=== PATIENT | male | born 1995 | race African-American/Black ===

== ENCOUNTER 2018-04-09 17:42 | Emergency (ER) | payer OTHER ==
--- NOTE | 2018-04-09 19:33 | ER ---
Nurse's Notes [facility] Name: Shae Thornton Age: 22 yrs Sex: Male : 1995 Arrival Date: 04/09/2018 Time: 17:48 Bed 12 Private MD: Diagnosis: Influenza due to other identified influenza virus-A Presentation: 04/09 18:19 Presenting complaint: Patient states: fever, cough, sore throat, body aches, and aa5 vomiting since last night. Pt also reports lower back pain. Transition of care: patient was not received from another setting of care. Onset of symptoms was April 2018. Risk Assessment: Do you want to hurt yourself or someone else? Patient reports no desire to harm self or others. Initial Sepsis Screen: Does the patient meet any 2 criteria? No. Patient's initial sepsis screen is negative. Does the patient have a suspected source of infection? No. Patient's initial sepsis screen is negative. Care prior to arrival: None. 18:19 Method Of Arrival: Ambulatory aa5 18:19 Acuity: BAL 4 aa5 Historical: - Allergies: 18:20 No Known Allergies; aa5 - PMHx: 18:20 None; aa5 - PSHx: 18:20 None; aa5 - Immunization history:: Adult Immunizations up to date. - Social history:: Smoking status: Patient/guardian denies using tobacco. - Ebola Screening: : No symptoms or risks identified at this time. Screenin:05 Abuse screen: Denies threats or abuse. Denies injuries from another. Nutritional lp1 screening: No deficits noted. Tuberculosis screening: No symptoms or risk factors identified. Fall Risk None identified. Assessment: 19:45 General: Appears in no apparent distress. Behavior is appropriate for age. Pain: lp1 Complains of pain in lumbar area Pain currently is 6 out of 10 on a pain scale. Quality of pain is described as aching. Neuro: No deficits noted. Cardiovascular: Patient's skin is warm and dry. Respiratory: Airway is patent Respiratory effort is even, unlabored. GI: No signs and/or symptoms were reported involving the gastrointestinal system. : No signs and/or symptoms were reported regarding the genitourinary system. EENT: Throat is clear. Derm: Skin is intact, Skin is dry, Skin is normal. Musculoskeletal: Circulation, motion, and sensation intact. Vital Signs: 18:20 BP 101 / 82; Pulse 94; Resp 18 S; Temp 100.0(TE); Pulse Ox 97% on R/A; Weight 68.04 kg aa5 (R); Height 5 ft. 10 in. (177.80 cm) (R); Pain 7/10; 19:45 BP 119 / 55; Pulse 85; Resp 16; Temp 97.9(O); Pulse Ox 99% on R/A; Pain 5/10; lp1 18:20 Body Mass Index 21.52 (68.04 kg, 177.80 cm) aa5 ED Course: 17:48 Patient arrived in ED. mr 18:20 Triage completed. aa5 18:20 Arm band placed on. aa5 18:40 Urine collected: clean catch specimen, clear, jesus colored, Amount Voided: 80mL. jp3 18:53 [facility]ara [facility]C [facility] snw 18:53 César Gudino MD is Attending Physician. snw 19:04 Urine Microscopic Only Sent. jp3 19:04 Throat Culture Sent. jp3 19:04 Urine Dipstick--Ancillary (enter results) Sent. jp3 19:31 Priscilla Sam, KARLENE is Primary Nurse. lp1 20:05 Patient has correct armband on for positive identification. lp1 20:05 No provider procedures requiring assistance completed. Patient did not have IV access lp1 during this emergency room visit. Administered Medications: 19:35 Drug: Tamiflu 75 mg Route: PO; lp1 20:10 Follow up: Response: No adverse reaction lp1 19:35 Drug: [place] (7.5 mg-325 mg) 1 tabs Route: PO; lp1 20:10 Follow up: Response: No adverse reaction; Pain is decreased lp1 Outcome: 19:33 Discharge ordered by . snw 20:05 Discharged to home ambulatory, with family. lp1 20:05 Condition: good 20:05 Discharge instructions given to patient, family, Instructed on discharge instructions, follow up and referral plans. medication usage, Demonstrated understanding of instructions, follow-up care, medications, Prescriptions given X 2. 20:10 Patient left the ED. lp1 Signatures: Tiara Taylor FNP-C FNP-Lidia Holt NolanSenait trejo RN RN aa5 Priscilla Sam, RN RN lp1 Antolin Trinh jp3
--- NOTE | 2018-04-09 19:34 | EDPHYS ---
Physician Documentation [facility] Name: Shae Thornton Age: 22 yrs Sex: Male : 1995 Arrival Date: 04/09/2018 Time: 17:48 Bed 12 Private MD: ED Physician César Gudino HPI: 04/09 20:46 This 22 yrs old Black Male presents to ER via Ambulatory with complaints of Fever, Body snw aches, Sore Throat, Vomiting. 20:46 The patient reports fever, not measured (subjective). Onset: The symptoms/episode snw began/occurred suddenly, yesterday. Modifying factors: there are no obvious modifying factors. Associated signs and symptoms: Pertinent positives: chills, cough, decreased appetite, myalgias, nausea, runny nose, sore throat. Severity of symptoms: At their worst the symptoms were moderate. The patient has not experienced similar symptoms in the past. It is unknown whether or not the patient has recently seen a physician. Historical: - Allergies: 18:20 No Known Allergies; aa5 - PMHx: 18:20 None; aa5 - PSHx: 18:20 None; aa5 - Immunization history:: Adult Immunizations up to date. - Social history:: Smoking status: Patient/guardian denies using tobacco. - Ebola Screening: : No symptoms or risks identified at this time. ROS: 20:44 Eyes: Negative for injury, pain, redness, and discharge, ENT: Negative for injury, snw pain, and discharge, Neck: Negative for injury, pain, and swelling, Cardiovascular: Negative for chest pain, palpitations, and edema. 20:44 Abdomen/GI: Negative for abdominal pain, nausea, vomiting, diarrhea, and constipation, Back: Negative for injury and pain, : Negative for injury, bleeding, discharge, and swelling, MS/Extremity: Negative for injury and deformity, Skin: Negative for injury, rash, and discoloration, Neuro: Negative for headache, weakness, numbness, tingling, and seizure. 20:44 Constitutional: Positive for body aches, chills, fatigue, fever, malaise, poor PO intake. 20:44 Respiratory: Positive for cough. Exam: 20:44 Head/Face: Normocephalic, atraumatic. Eyes: Pupils equal round and reactive to light, snw extra-ocular motions intact. Lids and lashes normal. Conjunctiva and sclera are non-icteric and not injected. Cornea within normal limits. Periorbital areas with no swelling, redness, or edema. ENT: Nares patent. No nasal discharge, no septal abnormalities noted. Tympanic membranes are normal and external auditory canals are clear. Oropharynx with no redness, swelling, or masses, exudates, or evidence of obstruction, uvula midline. Mucous membranes moist. Neck: Trachea midline, no thyromegaly or masses palpated, and no cervical lymphadenopathy. Supple, full range of motion without nuchal rigidity, or vertebral point tenderness. No Meningismus. Chest/axilla: Normal chest wall appearance and motion. Nontender with no deformity. No lesions are appreciated. 20:44 Respiratory: Lungs have equal breath sounds bilaterally, clear to auscultation and percussion. No rales, rhonchi or wheezes noted. No increased work of breathing, no retractions or nasal flaring. Abdomen/GI: Soft, non-tender, with normal bowel sounds. No distension or tympany. No guarding or rebound. No evidence of tenderness throughout. Back: No spinal tenderness. No costovertebral tenderness. Full range of motion. Skin: Warm, dry with normal turgor. Normal color with no rashes, no lesions, and no evidence of cellulitis. MS/ Extremity: Pulses equal, no cyanosis. Neurovascular intact. Full, normal range of motion. Neuro: Awake and alert, GCS 15, oriented to person, place, time, and situation. Cranial nerves II-XII grossly intact. Motor strength 5/5 in all extremities. Sensory grossly intact. Cerebellar exam normal. Normal gait. Psych: Awake, alert, with orientation to person, place and time. Behavior, mood, and affect are within normal limits. 20:44 Constitutional: The patient appears alert, awake, listless, uncomfortable. 20:44 Cardiovascular: Rate: tachycardic, Rhythm: regular, Pulses: no pulse deficits are appreciated, Edema: is not appreciated. Vital Signs: 18:20 BP 101 / 82; Pulse 94; Resp 18 S; Temp 100.0(TE); Pulse Ox 97% on R/A; Weight 68.04 kg aa5 (R); Height 5 ft. 10 in. (177.80 cm) (R); Pain 7/10; 19:45 BP 119 / 55; Pulse 85; Resp 16; Temp 97.9(O); Pulse Ox 99% on R/A; Pain 5/10; lp1 18:20 Body Mass Index 21.52 (68.04 kg, 177.80 cm) aa5 MDM: 19:33 Patient medically screened. snw 20:45 Data reviewed: vital signs, nurses notes. Data interpreted: Pulse oximetry: on room air snw is 99 %. Interpretation: normal. Counseling: I had a detailed discussion with the patient and/or guardian regarding: the historical points, exam findings, and any diagnostic results supporting the discharge/admit diagnosis, lab results, the need for further work-up and treatment in the hospital, to return to the emergency department if symptoms worsen or persist or if there are any questions or concerns that arise at home. Special discussion: Based on the history and exam findings, there is no indication for further emergent testing or inpatient evaluation. I discussed with the patient/guardian the need to see the primary care provider for further evaluation of the symptoms. 04/09 17:53 Order name: Flu; Complete Time: 18:53 snw 04/09 17:53 Order name: Strep; Complete Time: 18:53 snw 04/09 17:53 Order name: Urine Microscopic Only snw 04/09 18:41 Order name: Throat Culture EDMS 04/09 18:53 Order name: Urine Dipstick--Ancillary (enter results) bd 04/09 17:53 Order name: Urine Dipstick-Ancillary (obtain specimen); Complete Time: 19:04 snw Administered Medications: 19:35 Drug: Tamiflu 75 mg Route: PO; lp1 20:10 Follow up: Response: No adverse reaction lp1 19:35 Drug: [place] (7.5 mg-325 mg) 1 tabs Route: PO; lp1 20:10 Follow up: Response: No adverse reaction; Pain is decreased lp1 Disposition: 04/09/18 19:33 Discharged to Home. Impression: Influenza due to other identified influenza virus - A. - Condition is Stable. - Discharge Instructions: Influenza, Adult, Rehydration, Adult. - Prescriptions for Tamiflu 75 mg Oral Capsule - take 1 capsule by ORAL route every 12 hours for 5 days; 10 capsule. promethazine 25 mg Oral Tablet - take 1 tablet by ORAL route every 6 hours As needed; 20 tablet. - School release form, Work release form, Medication Reconciliation Form, Thank You Letter, Antibiotic Education, Prescription Opioid Use form. - Follow up: Private Physician; When: 2 - 3 days; Reason: Recheck today's complaints, Continuance of care, Re-evaluation by your physician. Follow up: Emergency Department; When: As needed; Reason: Worsening of condition. Addendum: 04/12/2018 07:17 Co-signature as Attending Physician, César Gudino MD. r n Signatures: Dispatcher [employer] EDMS Tiara Taylor, SENIOR ACCOUNT EXECUTIVE-C SENIOR ACCOUNT EXECUTIVE-Csnw César Gudino MD MD rn Senait Nolan, RN RN aa5 Priscilla Sam RN RN lp1 Corrections: (The following items were deleted from the chart) 04/09 18:21 17:53 Urine Test ordered. chelsey aa5 20:10 19:33 04/09/2018 19:33 Discharged to Home. Impression: Influenza due to other lp1 identified influenza virus - A. Condition is Stable. Forms are Medication Reconciliation Form, Thank You Letter, Antibiotic Education, Prescription Opioid Use. Follow up: Private Physician; When: 2 - 3 days; Reason: Recheck today's complaints, Continuance of care, Re-evaluation by your physician. Follow up: Emergency Department; When: As needed; Reason: Worsening of condition. chelsey
[2018-04-09] MEDS ORDERED: HYDROCODONE/APAP 7.5/325 MG TAB ONE (19:46)
[2018-04-09] MEDS ORDERED: OSELTAMIVIR 75 MG CAP ONE (19:46)
[2018-04-09 20:33] LABS: Urine Bacteria <20 /HPF (NONE SEEN); Urine Culture Reflex Order NOT NEEDED; Urine Mucus 4+ /HPF (NONE SEEN); Urine RBC <5 /HPF (NONE SEEN)
[2018-04-09 21:42] LABS: Urine Blood TRACE (NEG); Urine Glucose NEGATIVE (NEG); Urine Protein 1+ (NEG); Urine Specific Gravity 1.025 (1.005-1.030)
== END 2018-04-09 20:10 | disposition home or self-care (01) ==
LOC: ER 17:42
DX: J10.1 Influenza due to other identified influenza virus with other respiratory manifestations (principal)
CPT/HCPCS: 81003; 81015; 87070; 87081; 87804; 99283

== ENCOUNTER 2024-10-14 02:45 | Emergency (ER) | payer BC, OTHER, SELFPAY ==
--- OUTSIDE RECORDS SUMMARY | 2024-10-14 02:48 | XMS REPORT | Continuity of Care Document ---
Author Name Unknown Address [address] [place] [address] [facility] [place] Address [address] [place] [address] Care Team Providers Care Jewelry Setter Name Role Phone PCP, PATIENT DOES NOT HAVE A Primary Care Physic chance Unavailable GOLDEN VASQUEZ Attending Clinician Unavailable Golden Vasquez MD Attending Clinician [phone] GOLDEN VASQUEZ Admitting Clinician Unavailable Allergies, Adverse Reactions, Alerts Allergy Name Allergy Type Status Severity Reaction(s) Onset Date Inactive Date Treating Clinician Comments Source NO KNOWN ALLERGIE S Drug Class Active [facility] Social History Social Habit Start Date Stop Date Quantity Comments Source Exposure to SARS-CoV-2 (event) Not sure [facility] Sex Assigned At 1995 00:00:00 1995 00:00:00 [facility] Smoking Status Start Date Stop Date Source Unknown if ever smoked [facility] Vital Signs Vital Name Observation Time Observation Value Comments S jasmin Systolic blood pressure 2021-02-26 08:00:00 122 mm[Hg] [facility] Diastolic blood pressure 2021-02-26 08:00:00 67 mm[Hg] [facility] Heart rate 2021-02-26 08:00:00 68 /min [facility] Respiratory rate 2021-02-26 08:00:00 16 /min [facility] Oxygen saturation in Arterial blood by Pulse oximetry 2021-02-26 08:00:00 100 /min [facility] Body temperature 2021-02-26 03:14:00 36.5 Stephanie [facility] Body height 2021-02-26 03:14:00 180.3 cm [facility] Body weight 2021-02-26 03:14:00 72.576 kg [facility] BMI 2021-02-26 03:14:00 22.32 kg/m2 [facility] Procedures Procedure Date / Time Performed Performing Clinician Source MAGNESIUM 2021-02-26 07:04:[address] [facility] COMP. METABOLIC PANEL (30351) 2021-02-26 07:04:00 Golden Vasquez [facility] ETHANOL 2021-02-26 07:04:[address] [facility] CBC WITH DIFF 2021-02-26 07:04:00 Golden Vasquez [facility] CT HEAD WO CONTRAST 2021-02-26 04:32:49 Jasmina Vasquez [facility] URINE DRUG (IMMUNOASSAY) - COMPREHENSIVE DRUG SCREEN W/O REFLEX 2021-02-26 04:25:00 Golden Vasquez [facility] NOTICE OF PRIVACY PRACTICES 2021-02-26 02:57:02 Doctor Unassigned, [place] [facility] Encounters Start Date/Time End Date/Time Encounter Type Admission Type Attending Clinicians Care Facility Care Department Encounter ID Source 2024-07-15 14:03:36 2024-07-15 14:03:36 Outpatient [facility] [id number] Faraz Eaton Masood 2023-02-13 16:05:48 2023-02-13 16:05:48 Outpatient [facility] [id number] Faraz Eaton Masood 2021-02-25 21:18:00 2021-02-26 02:34:00 Emergency X GOLDEN VASQUEZ [facility] ERT [id number] [facility] 2021-02-25 21:18:00 2021-02-26 02:34:00 Emergency Golden Vasquez [facility] [id number] [facility] Results Test Description Test Time Test Comments Results Result Co mments Source [facility] Test Item Value Reference Range Interpretation Comme nts ALCOHOL (test code = 8929320360) 118 mg/dL ANISHA (test code = ANISHA) <10 Sexgruta10-610 Toxic>100 Depression of LEAD RADIATION THERAPIST>400 Fatalities [facility]orted [facility] 07:38:16* Test Item Value Reference Range Interpretation Comme nts MAGNESIUM (test code = 4341686433) 2.0 mg/dL 1.7-2.4 Lab Interpretation (test cod e = 27093-8) [facility] M[facility]I3701-21-06 07:11:33* Test Item Value Reference Range Interpretation Comme nts WBC (test code = 6690-2) See_Comment [Automated messa ge] The system which generated this result transmitted reference range: 4.20 - 10.70 10*3/?L. The reference range was not used to interpret this result as normal/abnormal. RBC (test code = 789-8) See_Comment [Automated messa ge] The system which generated this result transmitted reference range: 4.26 - 5.52 10*6/?L. The reference range was not used to interpret this result as normal/abnormal. HGB (test code = 718-7) 15.0 g/dL 12.2-16.4 HCT (test code = 4544-3) 44.2 % 38.4-49.3 MCV (test code = 787-2) 87.2 fL 81.7-95.6 MCH (test code = 785-6) 29.6 pg 26.1-32.7 MCHC (test code = 786-4) 33.9 g/dL 31.2-35.0 RDW-SD (test code = 02108-2) 40.4 fL 38.5-51.6 RDW-CV (test code = 788-0) 12.7 % 12.1-15.4 PLT (test code = 777-3) See_Comment [Automated messa ge] The system which generated this result transmitted reference range: 150 - 328 10*3/?L. The reference range was not used to interpret this result as normal/abnormal. MPV (test code = 10343-6) 11.0 fL 9.8-13.0 NRBC/100 WBC (test code = 1685678506) See_Comment [Automated me ssage] The system which generated this result transmitted reference range: 0.0 - 10.0 /100 WBCs. The reference range was not used to interpret this result as normal/abnormal. NRBC x10^3 (test code = 1104815975) <0.01 See_Comment [Automated messa ge] The system which generated this result transmitted reference range: 10*3/?L. The reference range was not used to interpret this result as normal/abnormal. GRAN MAT (NEUT) % (test code = 770-8) 60.9 % IMM GRAN % (test code = 1057476324) 0.10 % LYMPH % (test code = 736-9) 29.3 % MONO % (test code = 5905-5) 8.8 % EOS % (test code = 713-8) 0.2 % BASO % (test code = 706-2) 0.7 % GRAN MAT x10^3(ANC) (test code = 3853943160) 5.12 10*3/uL 1.99-6.95 IMM GRAN x10^3 (test code = 5009172590) <0.03 0.00-0.06 LYMPH x10^3 (test code = 731-0) 2.47 10*3/uL 1.09-3.23 MONO x10^3 (test code = 742-7) 0.74 10*3/uL 0.36-1.02 EOS x10^3 (test code = 711-2) <0.03 0.06-0.53 L BASO x10^3 (test code = 704-7) 0.06 10*3/uL 0.01-0.09 Lab Interpretation (test code = 29272-4) Abnormal [facility]
[2024-10-14] MEDS ORDERED: FAMOTIDINE 20 MG/2 ML VIAL IV ONE (03:31)
[2024-10-14] MEDS ORDERED: DIPHENHYDRAMINE 50 MG/ML VIAL ONE (03:31)
[2024-10-14] MEDS ORDERED: METHYLPREDNISOLONE 125 MG INJ ONE (03:31)
[2024-10-14] MEDS ORDERED: KETOROLAC 30 MG/ML INJ ONE (03:31)
[2024-10-14] MEDS ORDERED: NA CHLORIDE 0.9% 1,000 ML ONE (03:31)
[2024-10-14 04:03] LABS: Absolute Lymphocytes (CBC) 2.4 K/uL (0.7-4.9); Hematocrit 42.3 % (39.6-49.0); Hemoglobin 14.4 g/dL (13.6-17.9); MCH 29.9 pg (27.0-35.0); MCHC 34.0 g/dL (32.0-36.0); MCV 87.9 fL (80-100); MPV 9.4 fL (7.6-11.3); Nucleated RBC Absolute Count 0.0 (0-0); Nucleated Red Blood Cells % 0.2 % (0-0); RBC Red Blood Cell Count 4.81 M/uL (4.33-5.43); White Blood Count 6.70 thou/uL (4.3-10.9)
[2024-10-14 05:42] LABS: ALT/SGPT 36.0 U/L (16-61); AST/SGOT 31.0 U/L (15-37); Albumin 3.7 g/dL (3.4-5.0); Albumin/Globulin Ratio 1.2 (1.1-1.8); Alkaline Phosphatase 75.0 U/L (45-117); Anion Gap 7.6 mEq/L (5.0-15.0); BUN Blood Urea Nitrogen 22.0 mg/dL (7-18); Globulin 3.0 g/dL (2.3-3.5); Glucose Level 114.0 mg/dL (74-106); Potassium 3.6 mEq/L (3.5-5.1); Thyroid Stimulating Hormone 2.35 uIU/mL (0.358-3.740)
[2024-10-14 06:22] LABS: Hepatitis B surface AG Interp. Nonreactive (Nonreactive)
[2024-10-14 06:23] LABS: HBsAG Nonreactive Report Report
--- NOTE | 2024-10-14 06:34 | ER ---
Nurse's Notes [facility] Name: Shae Thornton Age: 29 yrs Sex: Male : 1995 Arrival Date: 10/14/2024 Time: 02:45 Bed 6 Private MD: Diagnosis: Acute generalized scaly rash, acute pruritus, acute contact dermatitis Presentation: 10/14 02:50 Chief complaint: Patient states: DRY ITCHY SKIN AROUND MY NECK, CHEST AND BILATERAL ha1 ARMS. FEELS A BURNING SENSATION THAT WOKE ME UP OF MY SLEEP. 02:50 Coronavirus screen: Client denies travel out of the [place] in the last 14 days. Ebola ha1 Screen: No symptoms or risks identified at this time. Initial Sepsis Screen: Does the patient meet any 2 criteria? No. Patient's initial sepsis screen is negative. Does the patient have a suspected source of infection? No. Patient's initial sepsis screen is negative. Risk Assessment: Do you want to hurt yourself or someone else? Patient reports no desire to harm self or others. Onset of symptoms was October 14, 2024. 02:50 Method Of Arrival: Ambulatory ha1 02:50 Acuity: BAL 4 ha1 Triage Assessment: 03:03 General: Appears uncomfortable, Behavior is calm, cooperative. Pain:. Neuro: Level of ha1 Consciousness is awake, alert, obeys commands, Oriented to person, place, time, situation. Cardiovascular: Capillary refill < 3 seconds Patient's skin is warm and dry. Respiratory: Airway is patent Respiratory effort is even, unlabored, Respiratory pattern is regular, symmetrical. GI: No signs and/or symptoms were reported involving the gastrointestinal system. : No signs and/or symptoms were reported regarding the genitourinary system. Derm: DRY SKIN AROUND THE NECK, CHEST AND BILATERAL MID ARM. Musculoskeletal: Circulation, motion, and sensation intact. Range of motion: intact in all extremities. Historical: - Allergies: 03:03 No Known Allergies; ha1 - PMHx: 03:03 None; ha1 - Immunization history:: Adult Immunizations up to date. - Infectious Disease History:: Denies. - Social history:: Smoking status: Patient denies any tobacco usage or history of. - Family history:: not pertinent. Screenin:07 [facility] ED Fall Risk Assessment (Adult) History of falling in the last 3 months, ha1 including since admission No falls in past 3 months (0 pts) Confusion or Disorientation No (0 pts) Intoxicated or Sedated No (0 pts) Impaired Gait No (0 pts) Mobility Assist Device Used No (0 pt) Altered Elimination No (0 pt) Score/Fall Risk Level 0 - 2 = Low Risk Oriented to surroundings, Maintained a safe environment, Educated pt \T\ family on fall prevention, incl call for assistance when getting out of bed, Hourly rounding (assess needs \T\ fall precautionary measures) done. Abuse screen: Denies threats or abuse. Denies injuries from another. Nutritional screening: No deficits noted. Tuberculosis screening: No symptoms or risk factors identified. Assessment: 03:34 General: Appears in no apparent distress. uncomfortable, Behavior is calm, cooperative. lg3 Pain: Complains of pain in right arm, left arm and neck Pain does not radiate. Pain currently is 3 out of 10 on a pain scale. Quality of pain is described as burning, stinging. Neuro: No deficits noted. [place] Agitation-Sedation Scale (RASS): 0 - Alert and Calm Level of Consciousness is awake, alert, obeys commands, Oriented to person, place, time, situation. Cardiovascular: No deficits noted. Denies chest pain, shortness of breath, Capillary refill < 3 seconds Clubbing of nail beds is absent JVD is absent Patient's skin is warm and dry. Respiratory: No deficits noted. Airway is patent Respiratory effort is even, unlabored, Respiratory pattern is regular, symmetrical. GI: No deficits noted. No signs and/or symptoms were reported involving the gastrointestinal system. Abdomen is flat, non-distended. : No signs and/or symptoms were reported regarding the genitourinary system. EENT: No deficits noted. No signs and/or symptoms were reported regarding the EENT system. Derm: Skin is intact, is healthy with good turgor, Skin is dry, Skin is normal, Skin temperature is warm Rash noted that is itchy. Musculoskeletal: No deficits noted. No signs and/or symptoms reported regarding the musculoskeletal system. Circulation, motion, and sensation intact. Range of motion: intact in all extremities. 04:58 Reassessment: Patient appears in no apparent distress at this time. No changes from lg3 previously documented assessment. Patient and/or family updated on plan of care and expected duration. Pain level reassessed. Patient is alert, oriented x 3, equal unlabored respirations, skin warm/dry/pink. Patient states feeling better. Patient states symptoms have improved. 06:50 Reassessment: Patient appears in no apparent distress at this time. No changes from lg3 previously documented assessment. Patient and/or family updated on plan of care and expected duration. Pain level reassessed. Patient is alert, oriented x 3, equal unlabored respirations, skin warm/dry/pink. Patient states feeling better. Patient states symptoms have improved. Vital Signs: 02:50 BP 141 / 69; Pulse 68; Resp 18 S; Temp 97.6; Pulse Ox 100% on R/A; Weight 76.2 kg; ha1 Height 5 ft. 11 in. ; Pain 7/10; 04:59 BP 121 / 74; Pulse 61; Resp 16 S; Pulse Ox 99% on R/A; lg3 06:31 BP 101 / 57; Pulse 79; Resp 16; Pulse Ox 98% on R/A; kd3 02:50 Body Mass Index 23.43 (76.20 kg, 180.34 cm) ha1 02:50 Pain Scale: Adult ha1 [place] Coma Score: 05:54 Eye Response: spontaneous(4). Motor Response: obeys commands(6). Verbal Response: sp4 oriented(5). Total: 15. ED Course: 02:47 Patient arrived in ED. [email or web address] 02:59 Shamar Alarcon MD is Attending Physician. ha1 03:03 Triage completed. ha1 03:10 Lisset Perdomo RN is Primary Nurse. kd3 03:34 Patient has correct armband on for positive identification. Placed in gown. Bed in low lg3 position. Call light in reach. Side rails up X 1. Client placed on continuous cardiac and pulse oximetry monitoring. NIBP monitoring applied. Door closed. Noise minimized. Warm blanket given. Pillow given. Family accompanied patient. 03:34 Arm band placed on right wrist. lg3 03:45 Inserted saline lock: 20 gauge in left hand, using aseptic technique. Blood collected. ts3 Flushed with 10 mL NS. 03:46 Initial lab(s) drawn, by laborer rags, sent to lab. ts3 06:50 No provider procedures requiring assistance completed. IV discontinued, intact, lg3 bleeding controlled, No redness/swelling at site. Pressure dressing applied. Administered Medications: 03:52 Drug: Famotidine IVP 20 mg IVP once; dilute with 10 mL 0.9% NaCl; give over 2 minutes kd3 Route: IVP; Site: left hand; 04:59 Follow up: Response: No adverse reaction lg3 03:52 Drug: TORadol - Ketorolac IVP 30 mg IVP once Route: IVP; Site: left hand; kd3 05:00 Follow up: Response: No adverse reaction; Marked relief of symptoms lg3 03:52 Drug: NS 0.9% IV 1000 ml IV at 1 bolus Per protocol; to be given as a bolus over 60 kd3 minutes Route: IV; Rate: 1 bolus; Site: left hand; 04:59 Follow up: Response: No adverse reaction; IV Status: Completed infusion; IV Intake: lg3 1000ml 03:52 Drug: diphenhydrAMINE IVP 25 mg IVP once Route: IVP; Site: left hand; kd3 04:59 Follow up: Response: No adverse reaction; Marked relief of symptoms lg3 03:52 Drug: MethylPrednisoLONE IVP 125 mg IVP once Route: IVP; Site: left hand; kd3 04:59 Follow up: Response: No adverse reaction lg3 Medication: 03:34 VIS not applicable for this client. lg3 Intake: 04:59 IV: 1000ml; Total: 1000ml. lg3 Outcome: 06:34 Discharge ordered by . sp4 06:50 Discharged to home ambulatory, with family, lg3 06:50 Condition: stable 06:50 Discharge instructions given to patient, Instructed on discharge instructions, follow up and referral plans. medication usage, Demonstrated understanding of instructions, follow-up care, medications, Prescriptions given X 3, 06:51 Patient left the ED. lg3 Signatures: Vania Griffin RN RN lg3 Darlene Huynh jj6 Lisset Perdomo RN RN kd3 Leatha Denise RN RN Shamar Clarke MD MD sp4 Christine Reddy ts3
--- NOTE | 2024-10-14 06:35 | EDPHYS ---
Physician Documentation [facility] [place] Name: Shae Thornton Age: 29 yrs Sex: Male : 1995 Arrival Date: 10/14/2024 Time: 02:45 Bed 6 Private MD: ED Physician Shamar Alarcon HPI: 10/14 04:00 This 29 yrs old Black Male presents to ER via Ambulatory with complaints of Rash. sp4 05:52 29-year-old black male presents with unusual rash distribution to his neck chest upper sp4 extremities. Rash started last Saturday 4 days ago after patient switched to a different type of soap. Historical: - Allergies: 03:03 No Known Allergies; ha1 - PMHx: 03:03 None; ha1 - Immunization history:: Adult Immunizations up to date. - Infectious Disease History:: Denies. - Social history:: Smoking status: Patient denies any tobacco usage or history of. - Family history:: not pertinent. ROS: 05:54 Constitutional: Negative for fever, chills, and weight loss, positive for diffuse scaly sp4 rash with pruritus 05:54 All other systems are negative, Exam: 05:54 Constitutional: This is a well developed, well nourished patient who is awake, alert, sp4 and in no acute distress. Head/Face: Normocephalic, atraumatic. Eyes: Pupils equal round and reactive to light, extra-ocular motions intact. Lids and lashes normal. Conjunctiva and sclera are not injected. Cornea within normal limits. Periorbital areas with no swelling, redness, or edema. ENT: Nares patent. No nasal discharge, no septal abnormalities noted. Tympanic membranes are normal and external auditory canals are clear. Oropharynx with no redness, swelling, or masses, exudates, or evidence of obstruction, uvula midline. Mucous membranes moist. Neck: Trachea midline, no thyromegaly or masses palpated, and no cervical lymphadenopathy. Supple, full range of motion without nuchal rigidity, or vertebral point tenderness. Chest/axilla: Normal chest wall appearance and motion. Nontender with no deformity. No lesions are appreciated. Cardiovascular: Regular rate and rhythm with a normal S1 and S2. No gallops, murmurs, or rubs. No pulse deficits. Respiratory: Lungs have equal breath sounds bilaterally, clear to auscultation and percussion. No rales, rhonchi or wheezes noted. No increased work of breathing, no retractions or nasal flaring. Abdomen/GI: Soft, with normal bowel sounds. No distension or tympany. No guarding or rebound. No evidence of tenderness throughout. Back: No spinal tenderness. No costovertebral tenderness. Male : Normal genitalia with no discharge or lesions. Skin: Warm, dry with normal turgor. Normal color with scaly rash reminiscent of eczema to neck chest upper back and bilateral upper extremities. MS/ Extremity: Pulses equal, no cyanosis. Neurovascular intact. Full, normal range of motion. Neuro: Awake and alert, GCS 15, oriented to person, place, time, and situation. Cranial nerves II-XII grossly intact. Motor strength 5/5 in all extremities. Sensory grossly intact. Psych: Awake, alert, with orientation to person, place and time. Behavior, mood, and affect are within normal limits Vital Signs: 02:50 BP 141 / 69; Pulse 68; Resp 18 S; Temp 97.6; Pulse Ox 100% on R/A; Weight 76.2 kg; ha1 Height 5 ft. 11 in. ; Pain 7/10; 04:59 BP 121 / 74; Pulse 61; Resp 16 S; Pulse Ox 99% on R/A; lg3 06:31 BP 101 / 57; Pulse 79; Resp 16; Pulse Ox 98% on R/A; kd3 02:50 Body Mass Index 23.43 (76.20 kg, 180.34 cm) ha1 02:50 Pain Scale: Adult ha1 [place] Coma Score: 05:54 Eye Response: spontaneous(4). Motor Response: obeys commands(6). Verbal Response: sp4 oriented(5). Total: 15. MDM: 03:18 Medical Screening Exam initiated sp4 05:55 Differential diagnosis: impetigo, varicella, allergic reaction, parasite infection, sp4 carcinoma, Eczema. Data reviewed: vital signs, nurses notes, lab test result(s), CBC, electrolytes, hepatic panel. Consideration of Admission/Observation Escalation of care including admission/observation considered. 10/14 03:27 Order name: CBC with Diff; Complete Time: 04:32 sp4 10/14 03:27 Order name: CMP; Complete Time: 05:43 sp4 10/14 03:27 Order name: TSH; Complete Time: 05:43 sp4 10/14 03:27 Order name: Hepatitis Panel; Complete Time: 06:31 sp4 10/14 03:27 Order name: HIV Ag/Ab Combo; Complete Time: 06:31 sp4 10/14 03:28 Order name: T4 Free; Complete Time: 05:43 sp4 10/14 03:27 Order name: IV Saline Lock; Complete Time: 03:45 sp4 10/14 03:27 Order name: Labs collected and sent; Complete Time: 03:45 sp4 10/14 04:13 Order name: Labs - recollect needed: green top; Complete Time: 04:24 kmf 10/14 04:40 Order name: Labs - recollect needed: another green top; Complete Time: 05:01 kmf Administered Medications: 03:52 Drug: Famotidine IVP 20 mg IVP once; dilute with 10 mL 0.9% NaCl; give over 2 minutes kd3 Route: IVP; Site: left hand; 04:59 Follow up: Response: No adverse reaction lg3 03:52 Drug: TORadol - Ketorolac IVP 30 mg IVP once Route: IVP; Site: left hand; kd3 05:00 Follow up: Response: No adverse reaction; Marked relief of symptoms lg3 03:52 Drug: NS 0.9% IV 1000 ml IV at 1 bolus Per protocol; to be given as a bolus over 60 kd3 minutes Route: IV; Rate: 1 bolus; Site: left hand; 04:59 Follow up: Response: No adverse reaction; IV Status: Completed infusion; IV Intake: lg3 1000ml 03:52 Drug: diphenhydrAMINE IVP 25 mg IVP once Route: IVP; Site: left hand; kd3 04:59 Follow up: Response: No adverse reaction; Marked relief of symptoms lg3 03:52 Drug: MethylPrednisoLONE IVP 125 mg IVP once Route: IVP; Site: left hand; kd3 04:59 Follow up: Response: No adverse reaction lg3 Disposition Summary: 10/14/24 06:34 Discharge Ordered Notes: Location: Home sp4 Problem: new sp4 Symptoms: have improved sp4 Condition: Stable sp4 Diagnosis - Acute generalized scaly rash, acute pruritus, acute contact dermatitis sp4 Followup: sp4 - With: Private Physician - When: As needed - Reason: Recheck today's complaints Discharge Instructions: - Discharge Summary Sheet sp4 - Contact Dermatitis, [id number] sp4 Forms: - Work release form bd - Patient Portal Instructions sp4 Prescriptions: - Cetaphil Moisturizing Topical lotion - apply 1 application TOPICAL route every 12 hours for 10 days as needed for dry sp4 skin; 473 milliliter; Refills: 0, Product Selection Permitted - Benadryl 25 mg Oral Capsule - take 1 capsule ORAL route every 6 hours As needed; 30 tablet; Refills: 0, sp4 Product Selection Permitted - Prednisone 20 mg Oral Tablet - take 2 tablets ORAL route once daily for 5 days; 10 tablet; Refills: 0, Product sp4 Selection Permitted Signatures: Dispatcher [employer] EDMS Lisset Perdomo RN RN kd3 Leatha Denise RN RN ha1 Shamar Alarcon MD MD sp4 Zeny [place] Lacie RN lg3 Corrections: (The following items were deleted from the chart) 03:27 03:27 CBC+H.LAB.BRZ ordered. EDMS EDMS 03:27 03:27 COMPREHENSIVE METABOLIC PANEL+C.LAB.BRZ ordered. EDMS EDMS
[2024-10-14 06:56] VITALS: TEMP 97.6
[2024-10-14 06:59] VITALS: BP 101/57; O2SAT 98
== END 2024-10-14 06:51 | disposition home or self-care (01) ==
LOC: ER 02:45
DX: R21 Rash and other nonspecific skin eruption (principal); L25.9 Unspecified contact dermatitis, unspecified cause; L29.9 Pruritus, unspecified
CPT/HCPCS: 36415; 80053; 80074; 84439; 84443; 85025; 87389; 96361; 96374; 96375; 99284; J1200; J2919; J7030